=== PATIENT | male | born 1985 | race Caucasian/White ===

== ENCOUNTER 2016-11-13 21:46 | Emergency (ER) | payer BC ==
[2016-11-13 22:01] VITALS: BP 129/83; PULSE 93; TEMP 98.1; BMI 28.8
--- NOTE | 2016-11-13 22:05 | PDOC ---
History of Present Illness - General Chief Complaint: Shortness of Breath Stated Complaint: SOB Time Seen by Provider: 11/13/16 21:49 History Source: Patient Exam Limitations: No Limitations - History of Present Illness Initial Comments: 11/13/16 22:24 This is a 30-year-old male who smokes approximately one half a pack a day who comes in with his girlfriend for evaluation of right-sided chest pain shortness of breath. Chest pain is worse with a deep breath and worse with palpation. Patient denies any history of similar pain in the past. Patient denies any history of hypertension, high cholesterol diabetes. Patient denies any recent travel. Patient denies any fevers, chills, cough, congestion, nausea, diaphoresis, radiation. Patient describes the pain as a sharp pain. Patient is otherwise healthy and takes no other medication. Patient denies any illegal drug use. PAST MEDICAL HISTORY: no significant history PAST SURGICAL HISTORY: no significant history FAMILY HISTORY: no pertinant history SOCIAL HISTORY: Pt lives with family and is employed. MEDICATIONS: reviewed ALLERGIES: As per nursing notes Review of Systems General: No fevers or chills, no weakness, no weight loss HEENT: No change in vision. No sore throat,. No ear pain CardioVascular: + chest pain, + shortness of breath Respiratory:No cough, or wheezing. Gastrointestinal: no nausea, vomitting, diarrhea or constipation, No rectal bleeding Genitourinary: No dysuria, hematuria, or frequency Musculoskeletal: No joint or muscle pain or swelling Neurologic: No headache, vertigo, dizziness or loss of consciousness Psychiatric: nor depression Skin: No rashes or easy bruising Endocrine: no increased thirst or abnormal weight change Allergic: no skin or latex allergy All other systems reviewed and normal Exam: General: Well-nourished well-developed individual, no acute distress HEENT: Throat: Normal, tonsils normal, there is some moderate erythema of the posterior oropharynx there is no exudate Neck: Supple, no meningeal signs, no lymphadenopathy Eyes::Pupils equal reactive and round, extraocular motion intact Chest: There is some mild tenderness on palpation over the right lower chest area. Cardiac: S1-S2 normal, regular rate and rhythm, no murmurs rubs or gallops Respiratory: Lungs clear to auscultation bilateral Abdomen: Soft, nondistended, normal bowel sounds, nontender to palpation diffusely Extremities: Warm, dry, no cyanosis, clubbing, or edema Skin: No rashes Neuro: Alert and oriented x3, nonfocal exam, grossly intact, normal gait Psych: Normal mood and affect EKG shows normal sinus rhythm at a rate of 85, normal intervals no acute ST-T wave changes normal EKG. 11/13/16 23:12 Chest x-ray no acute pathology Assessment and plan: This is a 30-year-old male who comes in complaining of pleuritic type chest pain and some shortness of breath. Patient had a workup including labs and chest x-ray and EKG all of which were completely normal. Patient was reassured that there is no serious cause for his symptoms most likely secondary to a mild viral infection. However patient was also told that he should stop smoking. Past History - Past Medical History Allergies/Adverse Reactions: Allergies Allergy/AdvReac Type Severity Reaction Status Date / Time No Known Allergies Allergy Unverified 11/13/16 21:54 Home Medications: Ambulatory Orders NK [No Known Home Medication] 11/13/16 Other medical history: DENIES - Surgical History Appendectomy: Yes - Psycho/Social/Smoking Cessation Hx Anxiety: No Suicidal Ideation: No Smoking History: Current every day smoker Number of Cigarettes Smoked Daily: 10 Information on smoking cessation initiated: Yes 'Breaking Loose' booklet given: 11/13/16 *Physical Exam - Vital Signs Last Vital Signs Temp Pulse Resp BP Pulse Ox 98.1 F 93 H 18 129/83 97 11/13/16 21:55 11/13/16 21:55 11/13/16 21:55 11/13/16 21:55 11/13/16 21:55 ED Treatment Course - LABORATORY CBC & Chemistry Diagram: 11/13/16 22:22 11/13/16 22:22 *DC/Admit/Observation/Transfer Diagnosis at time of Disposition: Pleurodynia - Discharge Dispostion Disposition: HOME Condition at time of disposition: Stable Admit: No - Patient Instructions Additional Instructions: For the pain you can take ibuprofen 3 tablets 3 times a day with food don't take on an empty stomach. Stop smoking/ Return to the emergency department immediately with ANY new, persistent or worsening symptoms. Continue any medications as previously prescribed by your physician. You should follow up with your primary doctor as soon as possible regarding today's emergency department visit. . Please make sure your doctor reviews the results of your emergency evaluation. Thank you for coming to the Emergency Department today for your care. It was a pleasure to see you today. Please note that your evaluation is INCOMPLETE until you follow-up with your doctor.
[2016-11-13 22:35] LABS: MEAN PLT VOLUME 8.2 fl (7.5-11.1)
[2016-11-13 22:43] LABS: BASOPHIL 1.1 % (0-2.0); MCH 31.5 pg (25.7-33.7); MCHC 34.6 g/dl (32.0-35.9); MEAN CELL VOLUME 91.2 fl (80-96); NEUTROPHILS 50.2 % (42.8-82.8); PLATELET COUNT 178 K/MM3 (134-434); RDW 11.6 % (11.9-15.9); WHITE BLOOD COUNT 7.9 K/mm3 (4.0-10.8)
[2016-11-13 22:51] LABS: CPK(DFH) 93 IU/L (38-174)
[2016-11-13 22:52] LABS: ALBUMIN 4.8 g/dl (3.5-5.0); ALK PHOS 44 U/L (32-92); ANION GAP 8 (8-16); BILIRUBIN,TOTAL 0.4 mg/dl (0.2-1.0); CALCIUM 9.3 mg/dl (8.4-10.2); CO2 24 mmol/L (22-28); CREATININE 0.9 mg/dl (0.6-1.3); GLUCOSE,RANDOM 87 mg/dl (74-106); SGOT/AST 21 U/L (10-42); SGPT/ALT 26 U/L (10-40); TOT PROT 7.2 g/dl (6.4-8.3)
[2016-11-13 22:56] LABS: TROPONIN I (DFP) < 0.03 ng/ml (0.03-0.50)
--- NOTE | 2016-11-14 15:11 | EKG ---
Test Reason : Blood Pressure : / mmHG Vent. Rate : 085 BPM Atrial Rate : 086 BPM P-R Int : 150 ms QRS Dur : 112 ms QT Int : 366 ms P-R-T Axes : 076 078 061 degrees QTc Int : 435 ms NORMAL SINUS RHYTHM NORMAL ECG WHEN COMPARED WITH ECG OF 04-NOV-2006 01:07, NO SIGNIFICANT CHANGE WAS FOUND Confirmed by BELLA TO MD ([id number]) on 11/14/2016 3:11:29 PM Referred By: MD SOTELO Confirmed By:BELLA TO MD
== END 2016-11-13 23:19 | disposition home or self-care (01) ==
LOC: FER 21:46
DX: R07.81 Pleurodynia (principal); F17.210 Nicotine dependence, cigarettes, uncomplicated
CPT/HCPCS: 36415; 71020-TC; 80053; 82550; 84484; 85025; 93005; 99283-25

== ENCOUNTER 2020-01-28 15:08 | Observation (INO) | payer BC ==
--- OUTSIDE RECORDS SUMMARY | 2020-01-28 15:31 | XMS ---
:1985 Author Organization [facility] Care Team Providers Name Role Phone Rich Prince MD Unavailable Unavailable Re-disclosure Warning The records that you are about to access may contain information from federally- assisted alcohol or drug abuse programs. If such information is present, then the following federally mandated warning applies: This information has been disclosed to you from records protected by federal confidentiality rules (42 CFR part 2). The federal rules prohibit you from making any further disclosure of this information unless further disclosure is expressly permitted by the written consent of the person to whom it pertains or as otherwise permitted by 42 CFR part 2. A general authorization for the release of medical or other information is NOT sufficient for this purpose. The Federal rules restrict any use of the information to criminally investigate or prosecute any alcohol or drug abuse patient.The records that you are about to access may contain highly sensitive health information, the redisclosure of which is protected by Article 27-F of the [facility] Public Health law. If you continue you may haveaccess to information: Regarding HIV / AIDS; Provided by facilities licensed or operated by the [facility] Office of Mental Health; or Provided by the [facility] Office for People With Developmental Disabilities. If such information is present, then the following [facility] mandated warning applies: This information has been disclosed to you from confidential records which are protected by state law. State law prohibits you from making any further disclosure of this information without the specific written consent of the person to whom it pertains, or as otherwise permitted by law. Any unauthorized further disclosure in violation of state law may result in a fine or long-term sentence or both. A general authorization for the release of medical or other information is NOT sufficient authorization for further disclosure. Allergies and Adverse Reactions Type Description Substance Reaction Status Data Source(s ) Drug allergy No Known Allergies No Known Allergies UNKNOWN [facility] Encounters Encounter Providers Location Date Indications Data Source(s ) Outpatient Attender: Rich 12/03/2018 BLOOD IN STOOL Cherie Prince MD 11:00:00 AM Hospital EDT - 12/03/2018 10:32:00 AM EDT BLOOD IN STOOL Patient discharged. Medications Medication Brand Start Product Dose Route Administrative Pharmacy [facility] Indications Reaction Description Data Name Date Form Instructions Instructions Source(s) No known complet [place] [facility] . Hospital Insurance Providers Payer name Policy type Policy ID Covered Covered democrat's Policy P oleg / Coverage democrat ID relationship to [place] Inf ormation type [place] [employer] PPO [id number] SP [id number] BLUE CROSS [id number] PT [id number] PPO [facility] [id number] PT [id number] Problems, Conditions, and Diagnoses Code Display Name Description Problem Type Effective Dates Data Source(s) Z87.891 Personal history of Z87.891 Diagnosis 12/03/2018 [place] nicotine dependence 09:32:00 AM EDT Hospital K64.8 Other hemorrhoids K64.8 Diagnosis 12/03/2018 [place] 09:32:00 AM EDT Hospital K63.5 Polyp of colon K63.5 Diagnosis 12/03/2018 [place] 09:32:00 AM EDT Hospital Social History Code Duration Value Status Description Data Source(s ) Smoking Unknown if ever completed Unknown if ever [facility] smoked smoked Hospital
--- NOTE | 2020-01-28 15:47 | PDOC ---
History of Present Illness - General Chief Complaint: Chest Pain Stated Complaint: PAPITATIONS Time Seen by Provider: 01/28/20 15:27 History Source: Patient Exam Limitations: Clinical Condition - History of Present Illness Initial Comments: 01/28/20 15:47 Patient with no significant past medical history present with complaint of sudden onset of palpitations upon waking up this morning. Patient reported having getting last night and had a lot of alcohol to drink yesterday. Patient reported 5 days with history of cardiomyopathy 48 years old. Denies shortness of breath, numbness or tingling sensation, headache, blurry vision, nausea, vomiting, fever, chills, weakness. Denies any other symptoms. Patient has not taken anything for symptoms Is this a multiple visit Asthma Patient?: No Timing/Duration: momentarily Associated Symptoms: reports: other (palpitations). denies: chest pain, cough, fever/chills, headaches, loss of appetite, nausea/vomiting, syncope Beta Ezekiel Given by EMS(Core Measure): No Beta Ezekiel Taken at Home(Core Measure): No Beta Ezekiel Not Indicated at this Time(Core Measure): No Past History - Medical History Allergies/Adverse Reactions: Allergies Allergy/AdvReac Type Severity Reaction Status Date / Time No Known Allergies Allergy Unverified 11/13/16 21:54 Home Medications: Ambulatory Orders NK [No Known Home Medication] 11/13/16 COPD: No - Surgical History Appendectomy: Yes - Psycho-Social/Smoking History Smoking History: Never smoked Number of Cigarettes Smoked Daily: 10 'Breaking Loose' booklet given: 11/13/16 - Substance Abuse Hx (Audit-C & DAST Scrn) How often the patient has a drink containing alcohol: Monthly or less Score: In Men: 4 or > Positive; In Women: 3 or > Positive: 1 Screen Result (Pos requires Nsg. Audit-10AR): Negative Review of Systems - Review of Systems Able to Perform ROS?: Yes Is the patient limited Welsh proficient: No Constitutional: No: Chills, Fever, Malaise HEENTM: No: Symptoms Reported, See HPI, Eye Pain, Blurred Vision, Tearing, Recent change in vision, Double Vision, Cataracts, Ear Pain, Ocular Prothesis, Ear Discharge, Nose Pain, Nose Congestion, Tinnitus, Nose Bleeding, Hearing Loss, Throat Pain, Throat Swelling, Mouth Pain, Dental Problems, Difficulty Swallowing, Mouth Swelling, Other Respiratory: No: Symptoms reported, See HPI, Cough, Orthopnea, Shortness of Breath, SOB with Exertion, SOB at Rest, Stridor, Wheezing, Productive cough, Hemoptysis, Other Cardiac (ROS): Yes: Symptoms Reported, See HPI, Irregular Heart Rate, Palpitations. No: Chest Pain, Edema, Lightheadedness, Syncope, Chest Tightness, Other ABD/GI: No: Symptoms Reported, Nausea, Vomiting : No: Symptoms Reported Musculoskeletal: No: Symptoms Reported Integumentary: No: Symptoms Reported Neurological: No: Symptoms reported, Headache, Dizziness All Other Systems: Reviewed and Negative *Physical Exam - Vital Signs Last Vital Signs Temp Pulse Resp BP Pulse Ox 98.3 F 73 20 125/71 100 01/28/20 15:13 01/28/20 15:13 01/28/20 15:13 01/28/20 15:13 01/28/20 15:13 - Physical Exam 01/28/20 15:43 GENERAL: Well developed, well nourished. Awake and alert. No acute distress. HEENT: Normocephalic, atraumatic. PERRLA, EOMI. No conjunctival pallor. Sclera are non-icteric. Moist mucous membranes. Oropharynx is clear. NECK: Supple. Full ROM. CARDIOVASCULAR: Regular rate with irregular rhythm. rubs, or gallops. Distal pulses are 2+ and symmetric. PULMONARY: No evidence of respiratory distress. Lungs clear to auscultation bilaterally. No wheezing, rales or rhonchi. ABDOMINAL: Soft. Non-tender. Non-distended. No rebound or guarding. No organomegaly. Normoactive bowel sounds. MUSCULOSKELETAL Normal range of motion at all joints. EXTREMITIES: No cyanosis. No clubbing. No edema. No calf tenderness. SKIN: Warm and dry. Normal capillary refill. No rashes. No jaundice. NEUROLOGICAL: Alert, awake, appropriate. Gait is normal without ataxia. PSYCHIATRIC: Cooperative. Good eye contact. Appropriate mood General Appearance: Yes: Nourished, Appropriately Dressed. No: Apparent Distress ED Treatment Course - RADIOLOGY Radiology Studies Ordered: Category Date Time Status CHEST PA & LAT [RAD] Stat Radiology 01/28/20 15:37 Ordered Medical Decision Making - Medical Decision Making 01/28/20 15:48 Patient with no significant past medical history present with complaint of sudden onset of palpitations upon waking up this morning. Patient reported having getting last night and had a lot of alcohol to drink yesterday. Patient reported 5 days with history of cardiomyopathy 48 years old. Denies shortness of breath, numbness or tingling sensation, headache, blurry vision, nausea, vomiting, fever, chills, weakness. Denies any other symptoms. Patient has not taken anything for symptoms Exam significant for irregular heart rate and rhythm with patient in no acute distress. Normal lung exam. Patient afebrile. Symptoms likely irregular be from alcohol versus cardiogenic symptoms. EKG, CBC, cardiac profile lab and checks x-ray ordered. Patient will be placed on residential monitor pending EKG and lab results 01/28/20 15:56 EKG shows rapid atrial fibrillation with some PVCs. Patient is symptomatic at this time and placed on residential monitor. Discussed case with attending Dr. Gr who will be following up with patient with resident Mook and pt moved to bed with residential monitor Discharge - Discharge Information Problems reviewed: Yes Clinical Impression/Diagnosis: New onset a-fib Condition: Stable - Follow up/Referral - Patient Discharge Instructions - Post Discharge Activity
[2020-01-28] MEDS ORDERED: dilTIAZem HCL 50 MG/10 ML - 10 ML VIAL IVPUSH ONE ×2 (15:53→17:09)
[2020-01-28] MEDS ORDERED: LACTATED RINGERS SOLUTION 1000 ML INFUS.BAG IV ONE (15:53)
[2020-01-28] MEDS ORDERED: dilTIAZem HCL 125 MG/25 ML - 25 ML VIAL ONE (15:56)
[2020-01-28] MEDS: SODIUM CHLORIDE 1,000 ML IV STA ×2 (15:57→15:58)
[2020-01-28 16:07] LABS: BASO % 0.3 % (0-2.0); EOS % 0.5 % (0-4.5); HEMATOCRIT 45.4 % (35.4-49); HEMOGLOBIN 15.8 GM/dL (11.7-16.9); LYMPH % 22.3 % (8-40); MCH 32.3 pg (25.7-33.7); MCHC 34.9 g/dl (32.0-35.9); MEAN CELL VOLUME 92.5 fl (80-96); MEAN PLT VOLUME 8.4 fl (7.5-11.1); MONO % 6.5 % (3.8-10.2); NEUT % 70.4 % (42.8-82.8); PLATELET COUNT 186 K/MM3 (134-434); RBC 4.91 M/mm3 (4.00-5.60); WHITE BLOOD COUNT 8.5 K/mm3 (4.0-10.0)
--- NOTE | 2020-01-28 16:26 | PDOC ---
Attending Attestation - Resident Resident Name: MookSae - ED Attending Attestation I have performed the following: I have examined & evaluated the patient, The case was reviewed & discussed with the resident, I agree w/resident's findings & plan, Exceptions are as noted - HPI HPI: 01/28/20 16:18 34YOM who p/w palpitations, SOB, lightheadedness after standing quickly, and jittery feeling after binge drinking for the past 4 days. Got yesterday which he notes is why he was drinking. States he ate [place] food today and had epigastric burning after that time but this has since resolved. Notes one prior episode of similar symptoms but he never sought medical treatment because it resolved. Denies recent f/c/n/v/d/c, abdominal pain, or any current chest pain. - Physicial Exam PE: 01/28/20 16:58 GENERAL: well-appearing, A/Ox4, no distress, answers questions appropriately HEENT: PERRLA, EOMI, moist mucous membranes NECK/BACK: no midline ttp, no spinal step-off or deformity, no hematoma, full ROM, neck supple CARDIOVASCULAR: irregularly irregular and tachycardic, no MGR, strong peripheral pulses, capillary refill <2 seconds, extremities wwp, no edema LUNGS/RESPIRATORY: no respiratory distress, CTAB GI/ABDOMEN: symmetric [id number], normoactive BS, soft, no ttp, no midline pulsatile masses : no CVA tenderness MSK/EXTREMITIES: no muscle atrophy, no acute deformity SKIN: warm and dry, no pallor, no jaundice, no rash, no pathologic-appearing bruising, no skin breakdown, no cuts, no lesions NEUROLOGICAL: GCS 15, CN II-XII grossly intact, 5/5 strength proximally and dis tally, no facial droop - Medical Decision Making 01/28/20 16:58 34YOM presents with lightheadedness, SOB, episode of chest burning, and palpitations this afternoon, found in A-fib with RVR. Initial Vital Signs Temp Pulse Resp BP Pulse Ox 98.3 F 73 20 125/71 100 01/28/20 15:13 01/28/20 15:13 01/28/20 15:13 01/28/20 15:13 01/28/20 15:13 Most likely A-fib precipitated by binge drinking, possible withdrawal, ischemia (ACS), structural heart condition less likely anemia PE, metabolic derangement, thyroid condition, anxiety/panic disorder, medication effect, etc. Patient given Cardizem 20 mg IVPush and 30 mg PO chaser. Initially HR improved to about 100 ventricular rate. RAD/CHEST PA LAT Chest: Chest pain 2 views of the chest reveal some degenerative changes with wedging, clear well aerated lungs, sharp angles, normal heart, normal and slight hilar prominence. An acute process is not seen. Since 11/13/2016 there is no change of an adverse nature. Impression: No acute chest pathology. 01/28/20 17:02 HR back up to 120-150s. 01/28/20 17:09 Re-checked BP and it is 114/84. Patient re-dosed with 25 mg Cardizem IVPush. 01/28/20 17:20 Dr. Delvalle spoke with Dr. Abreu, consult order placed, patient will go to Tele Inpatient Provider Orders Category Date Time Status Admission Certification ONCEPCS Admission 01/28/20 18:22 Completed Admit for Inpatient Services ONCE Admission 01/28/20 18:22 Completed Decision to Admit to Hospital Routine Admission 01/28/20 17:20 Active ECHO W/DOPPLER,M MODE & COLOR* [CARD] Stat Cardiology 01/29/20 18:42 Completed EKG [ELECTROCARDIOGRAM] [CARD] Stat Cardiology 01/28/20 15:22 Completed Cardiac Monitoring Continuous Care 01/28/20 15:37 Completed ED - May transport w/o monitor As directed Care 01/28/20 20:11 Completed EKG needed NOW Care 01/28/20 15:22 Completed Isolation Precautions As directed Care 01/28/20 16:26 Completed NPO (in ED only) NOW Care 01/28/20 15:37 Completed Physician Consultation Physician 1 Cons 01/28/20 17:19 Ordered Cardiac [Cholesterol/Na Controlled] [DT] Diet 01/29/20 Breakfast Completed BMP [BASIC METABOLIC PANEL] Routine Lab 01/29/20 05:45 Completed CARDIAC PROFILE ([facility]) Stat Lab 01/28/20 15:52 Completed CBC WITH DIFFERENTIAL Stat Lab 01/28/20 15:52 Completed CK INDEX Stat Lab 01/28/20 15:52 Completed CK MB Stat Lab 01/28/20 15:52 Completed COMP METABOLIC PANEL Stat Lab 01/28/20 15:52 Completed COVID-19 Stat Lab 01/28/20 16:26 Completed DRUG SCREEN,UR ER- [facility] Stat Lab 01/28/20 19:35 Completed Hgb A1C [HEMOGLOBIN A1C] Stat Lab 01/29/20 05:45 Completed MAGNESIUM Stat Lab 01/28/20 15:52 Completed Mg [MAGNESIUM] Routine Lab 01/29/20 05:45 Completed THYROID STIMULATING HORMONE Stat Lab 01/28/20 15:52 Completed UA [UA ([facility]) ONLY] Stat Lab 01/28/20 19:35 Completed Apixaban [Eliquis -] Medication 01/28/20 22:00 Discontinued 5 mg PO BID Diltiazem HCl Medication 01/28/20 16:18 Discontinued 30 mg PO ONCE ONE Diltiazem Injection [Cardizem Injection -] Medication 01/28/20 15:56 Discontinued 125 mg .ROUTE .STK-MED ONE Diltiazem Injection [Cardizem Injection -] Medication 01/28/20 15:53 Discontinued 20 mg IVPUSH ONCE ONE Diltiazem Injection [Cardizem Injection -] Medication 01/28/20 17:09 Discontinued 25 mg IVPUSH ONCE ONE Diltiazem [Cardizem -] Medication 01/28/20 16:28 Discontinued 30 mg .ROUTE .STK-MED ONE Lactated Ringers Solution Medication 01/28/20 15:53 Discontinued 1,000 ml IV ONCE ONE Metoprolol Succinate [Toprol Xl -] Medication 01/29/20 10:00 Discontinued 25 mg PO DAILY Metoprolol Tartrate Injection [Lopressor Injection -] Medication 01/28/20 18:27 Discontinued 5 mg IVPUSH Q4H PRN Sodium Chloride [Normal Saline -] 1,000 ml Medication 01/28/20 15:37 Discontinued IV ASDIR URINE CULTURE Stat Micro 01/28/20 19:35 Completed IV Insert NOW Phy Order 01/28/20 15:37 Completed CHEST PA & LAT [RAD] Stat Radiology 01/28/20 15:37 Completed Reminder: new phy cons See Order Reminders 01/28/20 17:19 Completed Lab Results WBC 8.5 K/mm3 (4.0-10.0) 01/28/20 15:52 RBC 4.91 M/mm3 (4.00-5.60) 01/28/20 15:52 Hgb 15.8 GM/dL (11.7-16.9) 01/28/20 15:52 Hct 45.4 % (35.4-49) 01/28/20 15:52 MCV 92.5 fl (80-96) 01/28/20 15:52 MCH 32.3 pg (25.7-33.7) 01/28/20 15:52 MCHC 34.9 g/dl (32.0-35.9) 01/28/20 15:52 RDW 13.0 % (11.9-15.9) 01/28/20 15:52 Plt Count 186 K/MM3 (134-434) 01/28/20 15:52 MPV 8.4 fl (7.5-11.1) 01/28/20 15:52 Absolute Neuts (auto) 6.0 K/mm3 (1.5-8.0) 01/28/20 15:52 Neutrophils % 70.4 % (42.8-82.8) 01/28/20 15:52 Lymphocytes % 22.3 % (8-40) 01/28/20 15:52 Monocytes % 6.5 % (3.8-10.2) 01/28/20 15:52 Eosinophils % 0.5 % (0-4.5) 01/28/20 15:52 Basophils % 0.3 % (0-2.0) 01/28/20 15:52 Nucleated RBC % 0 % (0-0) 01/28/20 15:52 Sodium 140 mmol/L (136-145) 01/29/20 05:45 Potassium 4.2 mmol/L (3.5-5.1) 01/29/20 05:45 Chloride 104 mmol/L (98-107) 01/29/20 05:45 Carbon Dioxide 30 mmol/L (21-32) 01/29/20 05:45 Anion Gap 6 MMOL/L (8-16) L 01/29/20 05:45 BUN 16.3 mg/dL (7-18) 01/29/20 05:45 Creatinine 0.9 mg/dL (0.55-1.3) 01/29/20 05:45 Est GFR (CKD-EPI)AfAm 126.90 01/29/20 05:45 Est GFR (CKD-EPI)NonAf 109.49 01/29/20 05:45 Random Glucose 87 mg/dL (74-106) 01/29/20 05:45 Hemoglobin A1c % 4.7 % (4.2-6.3) 01/29/20 05:45 Calcium 8.9 mg/dL (8.5-10.1) 01/29/20 05:45 Magnesium 2.1 mg/dL (1.8-2.4) 01/29/20 05:45 Total Bilirubin 0.7 mg/dL (0.2-1) 01/28/20 15:52 AST 30 U/L (15-37) 01/28/20 15:52 ALT 45 U/L (13-61) 01/28/20 15:52 Alkaline Phosphatase 55 U/L (45-117) 01/28/20 15:52 Creatine Kinase 204 U/L (26-308) 01/28/20 15:52 Creatine Kinase Index 1.5 % (0.0-5.0) 01/28/20 15:52 CK-MB (CK-2) 3.1 ng/mL (0.5-3.6) 01/28/20 15:52 Troponin I < 0.02 ng/ml (0.00-0.05) 01/28/20 15:52 Total Protein 8.2 g/dl (6.4-8.2) 01/28/20 15:52 Albumin 4.6 g/dl (3.4-5.0) 01/28/20 15:52 TSH 1.31 uIU/ml (0.358-3.74) 01/28/20 15:52 Urine Color Yellow 01/28/20 19:35 Urine Appearance Clear 01/28/20 19:35 Urine pH 7.0 (5.0-8.0) 01/28/20 19:35 Ur Specific [place] 1.015 (1.010-1.035) 01/28/20 19:35 Urine Protein Negative (NEGATIVE) 01/28/20 19:35 Urine Glucose (UA) Negative (NEGATIVE) 01/28/20 19:35 Urine Ketones 1+ (NEGATIVE) H 01/28/20 19:35 Urine Blood Negative (NEGATIVE) 01/28/20 19:35 Urine Nitrite Negative (NEGATIVE) 01/28/20 19:35 Urine Bilirubin Negative (NEGATIVE) 01/28/20 19:35 Urine Urobilinogen 1.0 mg/dL (0.2-1.0) 01/28/20 19:35 Ur Leukocyte Esterase Negative (NEGATIVE) 01/28/20 19:35 Opiates Screen Negative ng/ml (IKTOYQ=505) 01/28/20 19:35 Methadone Screen Negative ng/ml (HBMQVP=330) 01/28/20 19:35 Barbiturate Screen Negative ng/ml (VRPFIR=219) 01/28/20 19:35 Phencyclidine Screen Negative ng/ml (CUTOFF=25) 01/28/20 19:35 Ur Amphetamines Screen Negative ng/ml (NCDANQ=478) 01/28/20 19:35 MDMA (Ecstasy) Screen Negative ng/ml (EJLTIM=856) 01/28/20 19:35 Benzodiazepines Screen Negative ng/ml (TNDPJV=730) 01/28/20 19:35 Cocaine Screen Negative ng/ml (JNHHFF=047) 01/28/20 19:35 U Marijuana (THC) Screen Negative ng/ml (CUTOFF=50) 01/28/20 19:35 COVID-19 (SKYE) Not detected (Not Detected) 01/28/20 16:26 Discharge - Discharge Information Problems reviewed: Yes Clinical Impression/Diagnosis: New onset a-fib Condition: Guarded - Admission Yes - Follow up/Referral - Patient Discharge Instructions - Post Discharge Activity
[2020-01-28] MEDS ORDERED: dilTIAZem HCL 30 MG TABLET ONE (16:28)
[2020-01-28 16:38] LABS: ALBUMIN 4.6 g/dl (3.4-5.0); ANION GAP 9 MMOL/L (8-16); CALCIUM 9.1 mg/dL (8.5-10.1); CHLORIDE 104 mmol/L (98-107); CO2 26 mmol/L (21-32); GLUCOSE,RANDOM 165 mg/dL (74-106); MAGNESIUM 2.2 mg/dL (1.8-2.4); POTASSIUM 3.9 mmol/L (3.5-5.1); SGPT/ALT 45 U/L (13-61); SODIUM 139 mmol/L (136-145)
[2020-01-28 16:42] LABS: ALK PHOS 55 U/L (45-117); BILIRUBIN,TOTAL 0.7 mg/dL (0.2-1); CREATININE 0.9 mg/dL (0.55-1.3); SGOT/AST 30 U/L (15-37); TOT PROT 8.2 g/dl (6.4-8.2)
--- NOTE | 2020-01-28 17:24 | PDOC ---
History of Present Illness - General Chief Complaint: Chest Pain Stated Complaint: PAPITATIONS Time Seen by Provider: 01/28/20 15:27 Past History - Medical History Allergies/Adverse Reactions: Allergies Allergy/AdvReac Type Severity Reaction Status Date / Time No Known Allergies Allergy Unverified 11/13/16 21:54 Home Medications: Ambulatory Orders NK [No Known Home Medication] 11/13/16 COPD: No - Surgical History Appendectomy: Yes - Psycho-Social/Smoking History Smoking History: Never smoked Number of Cigarettes Smoked Daily: 10 'Breaking Loose' booklet given: 11/13/16 - Substance Abuse Hx (Audit-C & DAST Scrn) How often the patient has a drink containing alcohol: Monthly or less Score: In Men: 4 or > Positive; In Women: 3 or > Positive: 1 Screen Result (Pos requires Nsg. Audit-10AR): Negative Review of Systems - Review of Systems Is the patient limited Mohawk proficient: No *Physical Exam - Vital Signs Last Vital Signs Temp Pulse Resp BP Pulse Ox 98.3 F 73 20 125/71 100 01/28/20 15:13 01/28/20 15:13 01/28/20 15:13 01/28/20 15:13 01/28/20 16:56 ED Treatment Course - LABORATORY CBC & Chemistry Diagram: 01/28/20 15:52 01/28/20 15:52 - ADDITIONAL ORDERS Additional order review: Laboratory Results 01/28/20 15:52 Sodium 139 Potassium 3.9 Chloride 104 Carbon Dioxide 26 Anion Gap 9 BUN 15.0 Creatinine 0.9 Est GFR (CKD-EPI)AfAm 126.90 Est GFR (CKD-EPI)NonAf 109.49 Random Glucose 165 H Calcium 9.1 Magnesium 2.2 Total Bilirubin 0.7 AST 30 ALT 45 Alkaline Phosphatase 55 Creatine Kinase 204 Creatine Kinase Index 1.5 CK-MB (CK-2) 3.1 Troponin I < 0.02 Total Protein 8.2 Albumin 4.6 TSH 1.31 01/28/20 15:52 RBC 4.91 MCV 92.5 MCHC 34.9 RDW 13.0 MPV 8.4 Neutrophils % 70.4 Lymphocytes % 22.3 Monocytes % 6.5 Eosinophils % 0.5 Basophils % 0.3 - Medications Given in the ED: ED Medications Discontinued Medications Generic Name Dose Route Start Last Admin Trade Name Freq PRN Reason Stop Dose Admin Diltiazem HCl 20 mg 01/28/20 15:53 01/28/20 15:58 Cardizem Injection - IVPUSH 01/28/20 15:54 20 mg ONCE ONE Administration Diltiazem HCl 30 mg 01/28/20 16:18 01/28/20 16:38 Diltiazem Hcl PO 01/28/20 16:19 30 mg ONCE ONE Administration Diltiazem HCl 25 mg 01/28/20 17:09 01/28/20 17:12 Cardizem Injection - IVPUSH 01/28/20 17:10 25 mg ONCE ONE Administration Sodium Chloride 1,000 mls @ 1,000 mls/hr 01/28/20 15:37 01/28/20 15:58 Normal Saline - IV 01/28/20 16:36 Not Given ASDIR STA Lactated Ringer's 1,000 ml 01/28/20 15:53 01/28/20 15:58 Lactated Ringers Solution IV 01/28/20 15:54 1,000 ml ONCE ONE Administration Medical Decision Making - Medical Decision Making 34M w/no PMH p/w palpitations, lightheadedness, HR to 170s on arrival, EKG notable for afib, representing afib w.RVR. No prior cardiac history, BP remains stable to 120s/90s. Plan: CBC CMP TSH EKG CXR Troponin Cardiology consult Cardizem 20mg IV, followed by 30mg po chaser Dispo: Admit telemetry vs ICU pending requirement for drips to maintain HR <115 01/28/20 17:[address] Alvarado (Cardiology). Plan for 50mg po metoprolol. 5mg metoprolol can be given prn for target HR <115. Eliquis for anticoagulation. Discharge - Discharge Information Clinical Impression/Diagnosis: New onset a-fib Condition: Stable - Follow up/Referral - Patient Discharge Instructions - Post Discharge Activity
[2020-01-28] MEDS ORDERED: METOPROLOL TARTRATE 5 MG/5 ML VIAL IVPUSH PRN (18:27)
--- NOTE | 2020-01-28 18:39 | HP ---
CHIEF COMPLAINT: Palpitations PCP: Dr. Betito Espinal HISTORY OF PRESENT ILLNESS: 34yo M with no PMHx who presents one day after his wedding due to rapid palpitations. Patient has experienced these symptoms before (around 2 mo prior), however at the time he went to bed and the episode resolved. Today he came in at the suggestion of his because he started to develop an uneasiness and slight lightheadedness. Patient takes no medications and has never had any cardiac or pulmonary history. He admits to drinking alcohol in celebration of his wedding, but otherwise had not consumed any illicit substances or an extreme amount of caffeinated beverages. In Ed patient was noted to have HR of 180bpm and was given Cardizem IVP twice with good effects, however not long-lasting. He was given Cardizem 30mg PO by ER providers and upon my examination his HR is around 100-120bpm. Patient's BP had been stable throughout his course and he feels markedly improved. PAST MEDICAL HISTORY: None prior PAST SURGICAL HISTORY: None Social History: Smoking: Denies Alcohol: Socially/Special occasions Drugs: None Family History: Father - CAD with multiple stents; no other history he is aware of Allergies No Known Allergies Allergy (Unverified 11/13/16 21:54) HOME MEDICATIONS: Home Medications Medication Instructions Recorded NK [No Known Home Medication] 11/13/16 REVIEW OF SYSTEMS As per [facility] PHYSICAL EXAMINATION Vital Signs - 24 hr 01/28/20 01/28/20 15:13 16:56 Temperature 98.3 F Pulse Rate 73 Respiratory 20 Rate Blood Pressure 125/71 O2 Sat by Pulse 100 100 Oximetry (%) GENERAL: Awake, alert, and fully oriented, in no acute distress. HEENT: NC/At, EOMi, VEE, sclera anicteric, MMM NECK: No JVD, no carotid bruits, no thyromegaly appreciated LUNGS: CTA bilaterally. No wheezes, and no crackles. No accessory muscle use. HEART: Tachycardic with regular rhythm, normal S1 and S2 without murmurs ABDOMEN: Soft, NT/ND, normoactive bowel sounds, no guarding EXTREMITIES: 2+ pulses, warm, well-perfused. No calf tenderness. No peripheral edema. PSYCHIATRIC: Cooperative. Good eye contact. Appropriate mood and affect. SKIN: Warm, dry, no rashes or lesions noted Laboratory Results - last 24 hr 01/28/20 01/28/20 15:52 15:52 WBC 8.5 RBC 4.91 Hgb 15.8 Hct 45.4 MCV 92.5 MCH 32.3 MCHC 34.9 RDW 13.0 Plt Count 186 MPV 8.4 Absolute Neuts (auto) 6.0 Neutrophils % 70.4 Lymphocytes % 22.3 Monocytes % 6.5 Eosinophils % 0.5 Basophils % 0.3 Nucleated RBC % 0 Sodium 139 Potassium 3.9 Chloride 104 Carbon Dioxide 26 Anion Gap 9 BUN 15.0 Creatinine 0.9 Est GFR (CKD-EPI)AfAm 126.90 Est GFR (CKD-EPI)NonAf 109.49 Random Glucose 165 H Calcium 9.1 Magnesium 2.2 Total Bilirubin 0.7 AST 30 ALT 45 Alkaline Phosphatase 55 Creatine Kinase 204 Creatine Kinase Index 1.5 CK-MB (CK-2) 3.1 Troponin I < 0.02 Total Protein 8.2 Albumin 4.6 TSH 1.31 ASSESSMENT/PLAN: New Onset Atrial Fibrillation Hyperglycemia without diagnosis of diabetes --TSH WNL currently --No viral syndromes pre-empting --Likely 2/2 alcohol use and possibility of paroxysmal atrial fibrillation due to episodes past --Cardiac monitoring; maintain HR <120bpm --Echocardiogram --Discussed with cardiology on case ([facility]) and appreciated recs --Eliquis 5mg BID considering rapid state and potential for cardioversion if nonconverting --Toprol XL 50mg daily with PRN Lopressor 5mg q4h IVP pending hemodynamics (hold parameters placed in orders) Dispo: Admit telemetry Raymundo Trevino DO - IM Family Medical History Family History: As Documented Visit type - Emergency Visit Emergency Visit: Yes Care time: The patient presented to the Emergency Department on the above date and was hospitalized for further evaluation of their emergent condition. - New Patient This patient is new to me today: Yes Date on this admission: 01/28/20 - Critical Care Critical Care patient: No
--- OUTSIDE RECORDS SUMMARY | 2020-01-28 19:48 | XMS ---
:1985 Author Organization [facility] Care Team Providers Name Role Phone [...] is protected by Article 27-F of the [facility] Public Health law. If you continue you may haveaccess to information: Regarding HIV / AIDS; Provided by facilities licensed or operated by the [facility] Office of Mental Health; or Provided by the [facility] Office for People With Developmental Disabilities. If such information is present, then the following [facility] mandated warning applies: This information has been [...] law may result in a fine or intermediate sentence or both. A general authorization for the release of medical or other information is NOT sufficient authorization for further disclosure. Allergies and Adverse Reactions Type Description Substance Reaction Status Data Source(s ) Drug allergy No Known Allergies No Known Allergies UNKNOWN [facility] Encounters Encounter Providers Location Date Indications Data Source(s ) Outpatient Attender: Rich 12/03/2018 BLOOD IN STOOL Cherie Prince MD 11:00:00 AM Hospital EDT - 12/03/2018 10:32:00 AM EDT BLOOD IN STOOL Patient discharged. Medications Medication Brand Start Product Dose Route Administrative Pharmacy [facility] Indications Reaction Description Data Name Date Form Instructions Instructions Source(s) No known complet [place] [facility] Insurance Providers Payer name Policy type Policy ID Covered Covered constitution party's Policy P oleg / Coverage constitution party ID relationship to [place] Inf ormation type [place] BC PPO [id number] SP [id number] BLUE CROSS [id number] PT [id number] PPO [facility] [id number] PT [id number] Problems, Conditions, and Diagnoses Code Display Name Description Problem Type Effective Dates Data Source(s) Z87.891 Personal history of Z87.891 Diagnosis 12/03/2018 [place] nicotine dependence 09:32:00 AM EDT Hospital K64.8 Other hemorrhoids K64.8 Diagnosis 12/03/2018 [facility] 09:32:00 AM EDT Hospital K63.5 Polyp of colon K63.5 Diagnosis 12/03/2018 [place] 09:32:00 AM EDT Hospital Social History Code Duration Value Status Description Data Source(s ) Smoking Unknown if ever completed Unknown if ever [facility] smoked smoked Hospital
[2020-01-28 20:00] LABS: URINE APPEARANCE CLEAR; URINE BILIRUBIN NEGATIVE (NEGATIVE); URINE COLOR YELLOW; URINE GLUCOSE (UA) NEGATIVE (NEGATIVE); URINE KETONE 1+ (NEGATIVE); URINE LEUK ESTERASE NEGATIVE (NEGATIVE); URINE NITRITE NEGATIVE (NEGATIVE); URINE PROTEIN NEGATIVE (NEGATIVE)
[2020-01-28 20:11] LABS: COCAINE, UR NEGATIVE ng/ml (CUTOFF=300); METHADONE, UR NEGATIVE ng/ml (CUTOFF=300); OPIATES, URI NEGATIVE ng/ml (CUTOFF=300); PHENCYCLIDINE,URINE NEGATIVE ng/ml (CUTOFF=25); URINE AMPHETAMINES NEGATIVE ng/ml (CUTOFF=500); URINE BARBITURATES NEGATIVE ng/ml (CUTOFF=200); URINE BENZODIAZEPINES NEGATIVE ng/ml (CUTOFF=200)
[2020-01-28] MEDS: APIXABAN 5 MG TABLET PO SCH (21:36)
[2020-01-29 01:11] VITALS: BMI 31.9
[2020-01-29 07:19] LABS: BLOOD UREA NITROGEN 16.3 mg/dL (7-18); CALCIUM 8.9 mg/dL (8.5-10.1); CREATININE 0.9 mg/dL (0.55-1.3); MAGNESIUM 2.1 mg/dL (1.8-2.4); POTASSIUM 4.2 mmol/L (3.5-5.1)
[2020-01-29] MEDS: APIXABAN 5 MG TABLET PO SCH (09:11)
[2020-01-29] MEDS ORDERED: metoPROLOL SUCCINATE 25 MG TAB.SR.24H (FP) PO SCH (10:00)
--- NOTE | 2020-01-29 10:50 | CON.CARD ---
Consult Consult Specialty:: Cardiology Referred by:: Uriel Reason for Consultation:: PAF - History of Present Illness Chief Complaint: palpitations History of Present Illness: He ia a 34 year old man without past medical history who presented to the ER 01/28/20 with palpitations rapid heart beat, after his wedding (drank alcohol no drugs) with lightheadedness. No chest pain, orthopnea, pnd edema or syncope. He had a similar episode 2 months ago, resolved spontaneously. In the ER he was in afib @ 180, given dilt IV, then PO, then toprol xl and eliquis. Spontaneously converted to NSR. Baseline exercise tolerance is excellent. - History Source History Provided By: Patient, Medical Record - Smoking History Smoking history: Former smoker Have you smoked in the past 12 months: No Aproximately how many cigarettes per day: 20 If you are a former smoker, when did you quit?: 3 years ago Home Medications - Allergies Allergies/Adverse Reactions: Allergies Allergy/AdvReac Type Severity Reaction Status Date / Time No Known Allergies Allergy Unverified 11/13/16 21:54 - Home Medications Home Medications: Ambulatory Orders NK [No Known Home Medication] 11/13/16 Review of Systems - Review of Systems Constitutional: reports: No Symptoms, Weakness HENT: reports: No Symptoms Neck: reports: No Symptoms Cardiovascular: reports: Palpitations Respiratory: reports: No Symptoms Gastrointestinal: reports: No Symptoms Genitourinary: reports: No Symptoms Musculoskeletal: reports: No Symptoms Integumentary: reports: No Symptoms - Risk Factors Known Risk Factors: No: Age, Diabetes Mellitus, Family History, Gender, Hypercholesterolemia, Hypertension, Physical Inactivity, Prior OK /Emb Stroke, Race, Smoking, Other Vital Signs: Vital Signs Temperature 98 F 01/29/20 10:00 Pulse Rate 81 01/29/20 10:00 Respiratory Rate 18 01/29/20 10:00 Blood Pressure 124/77 01/29/20 10:00 O2 Sat by Pulse Oximetry (%) 99 01/29/20 10:00 Constitutional: Yes: No Distress, Calm Eyes: Yes: Conjunctiva Clear, EOM Intact HENT: Yes: Atraumatic, Normocephalic Neck: Yes: Supple, Trachea Midline Respiratory: Yes: Regular, CTA Bilaterally Gastrointestinal: Yes: Normal Bowel Sounds, Soft Renal/: Yes: WNL Cardiovascular: Yes: Regular Rate and Rhythm JVD: No Carotid Bruit: No PMI: Non-Displaced Heart Sounds: Yes: S1, S2 Musculoskeletal: Yes: WNL Extremities: Yes: WNL Edema: No Peripheral Pulses WNL: Yes - Other Data Labs, Other Data: CBC, BMP 01/28/20 15:52 01/29/20 05:45 Troponin, BNP 01/28/20 15:52 Troponin I < 0.02 Troponin, BNP 01/28/20 15:52 Troponin I < 0.02 Imaging - Results Chest X-ray: Report Reviewed EKG: Report Reviewed (af rvr) Assessment/Plan He ia a 34 year old man without past medical history who presented to the ER 01/28/20 with palpitations rapid heart beat, after his wedding (drank alcohol no drugs) with lightheadedness. No chest pain, orthopnea, pnd edema or syncope. He had a similar episode 2 months ago, resolved spontaneously. In the ER he was in afib @ 180, given dilt IV, then PO, then toprol xl and eliquis. Spontaneously converted to NSR. Baseline exercise tolerance is excellent. PAF: -CHADS2-VASC is 0. -no need for AC. -echo before dc if possible. -continue low dose metoprolol. -will need outpatient fu with Dr Lunsford for event monitor and possible PVI in the future. [phone] information given to the patient.
--- NOTE | 2020-01-29 12:53 | PN ---
Teaching Attending Note Name of Resident: Saad Hyde ATTENDING PHYSICIAN STATEMENT I saw and evaluated the patient. I reviewed the resident's note and discussed the case with the resident. I agree with the resident's findings and plan as documented. SUBJECTIVE: no fever or chills, no JACKSON, no cp or palpitations or SOB . denies excessive alcohol or caffeine use , no drug use OBJECTIVE: NAd , wake, alert, cooperative CV: RRR, no MRG Lungs: CTAB ext : No edema or erythema , on upper or lower extremities ASSESSMENT AND PLAN: 34 y/o man with no sig PMH who presented with palpitation and was found ot have A fib with RVR 1- new onset A fib . TSH NL . A1c 4.5 CHADSVASC 0 . cont toprol daily f/u with card. - no AC or ASpirin - f/u with card d/w Dr. montes follow echo reprot. dc home today
--- NOTE | 2020-01-29 14:18 | DS ---
Physical Exam: SUBJECTIVE: Patient seen and examined this morning, in no acute distress. Endorses no complaints. Denies any F/C, JACKSON, changes in vision, CP, palpitations, SoB, N/V/D, swelling. + OBJECTIVE: Vital Signs Period Temp Pulse Resp BP Sys/Wallace Pulse Ox Last 24 Hr 97.8 F-98.8 F 73-136 18-20 101-125/63-84 98-100 PHYSICAL EXAM GENERAL: The patient is awake, alert, and fully oriented, in no acute distress. HEAD: Normal with no signs of trauma. EYES: PERRL, extraocular movements intact, sclera anicteric, conjunctiva clear. ENT: Ears normal, nares patent, oropharynx clear without exudates, moist mucous membranes. NECK: Trachea midline, full range of motion, supple. LUNGS: Breath sounds equal, clear to auscultation bilaterally, no wheezes, no crackles, no accessory muscle use. HEART: Regular rate and rhythm, S1, S2 without murmur, rub or gallop. ABDOMEN: Soft, nontender, nondistended, normoactive bowel sounds EXTREMITIES: 2+ pulses, warm, well-perfused, no edema. NEUROLOGICAL: Normal speech, gait not observed. PSYCH: Normal mood, normal affect. SKIN: Warm, dry, normal turgor, no rashes or lesions noted. LABS Laboratory Results - last 24 hr 01/28/20 01/28/20 01/28/20 15:52 15:52 19:35 WBC 8.5 RBC 4.91 Hgb 15.8 Hct 45.4 MCV 92.5 MCH 32.3 MCHC 34.9 RDW 13.0 Plt Count 186 MPV 8.4 Absolute Neuts (auto) 6.0 Neutrophils % 70.4 Lymphocytes % 22.3 Monocytes % 6.5 Eosinophils % 0.5 Basophils % 0.3 Nucleated RBC % 0 Sodium 139 Potassium 3.9 Chloride 104 Carbon Dioxide 26 Anion Gap 9 BUN 15.0 Creatinine 0.9 Est GFR (CKD-EPI)AfAm 126.90 Est GFR (CKD-EPI)NonAf 109.49 Random Glucose 165 H Hemoglobin A1c % Calcium 9.1 Magnesium 2.2 Total Bilirubin 0.7 AST 30 ALT 45 Alkaline Phosphatase 55 Creatine Kinase 204 Creatine Kinase Index 1.5 CK-MB (CK-2) 3.1 Troponin I < 0.02 Total Protein 8.2 Albumin 4.6 TSH 1.31 Urine Color Yellow Urine Appearance Clear Urine pH 7.0 Ur Specific [place] 1.015 Urine Protein Negative Urine Glucose (UA) Negative Urine Ketones 1+ H Urine Blood Negative Urine Nitrite Negative Urine Bilirubin Negative Urine Urobilinogen 1.0 Ur Leukocyte Esterase Negative Opiates Screen Methadone Screen Barbiturate Screen Phencyclidine Screen Ur Amphetamines Screen MDMA (Ecstasy) Screen Benzodiazepines Screen Cocaine Screen U Marijuana (THC) Screen 01/28/20 01/29/20 01/29/20 19:35 05:45 05:45 WBC RBC Hgb Hct MCV MCH MCHC RDW Plt Count MPV Absolute Neuts (auto) Neutrophils % Lymphocytes % Monocytes % Eosinophils % Basophils % Nucleated RBC % Sodium 140 Potassium 4.2 Chloride 104 Carbon Dioxide 30 Anion Gap 6 L BUN 16.3 Creatinine 0.9 Est GFR (CKD-EPI)AfAm 126.90 Est GFR (CKD-EPI)NonAf 109.49 Random Glucose 87 Hemoglobin A1c % 4.7 Calcium 8.9 Magnesium 2.1 Total Bilirubin AST ALT Alkaline Phosphatase Creatine Kinase Creatine Kinase Index CK-MB (CK-2) Troponin I Total Protein Albumin TSH Urine Color Urine Appearance Urine pH Ur Specific [place] Urine Protein Urine Glucose (UA) Urine Ketones Urine Blood Urine Nitrite Urine Bilirubin Urine Urobilinogen Ur Leukocyte Esterase Opiates Screen Negative Methadone Screen Negative Barbiturate Screen Negative Phencyclidine Screen Negative Ur Amphetamines Screen Negative MDMA (Ecstasy) Screen Negative Benzodiazepines Screen Negative Cocaine Screen Negative U Marijuana (THC) Screen Negative HOSPITAL COURSE: Date of Admission:01/29/20 ECHO (01/29/2020): EF 65-70% w/ no structural abnormalities Date of Discharge: 01/29/20 RY OF PRESENT ILLNESS: 34yo M with no PMHx presented to [facility] ED one day after his wedding due to rapid palpitations. Patient has previously experienced these symptoms before 2 months ago, however at the time he went to bed and the episode resolved. On 01/29/2020 he came to the ED at the suggestion of his because he started to develop an uneasiness and slight lightheadedness. Patient takes no medications and has never had any cardiac or pulmonary history. He admitted to drinking alcohol in celebration of his wedding, but otherwise had not consumed any illicit substances or excessive caffeneited beverages. In the ED ptn noted to have HR of 180bpm and was given Cardizem IVP x2 with good effects, however not long-lasting. He was then given Cardizem 30mg PO by ER providers with resultant HR of 100-120bpm. Patient's BP had been stable throughout. Ptn was admitted to the telemetry floors where Cardiology was consulted. CHADsVASc was 0. Eliquis was started at 5mg BID prophylactically. Cardiology saw the patient and deemed eliquis unnecessary and began Toprol Xl 25mg qdaily with suggested outpatient followup for monitoring and possible ablation. Ptn spontaneously converted from Afib to NSR and was deemed medically stable for DC with outpatient followup with Cardiology. Minutes to complete discharge: 36 Discharge Summary Problems reviewed: Yes Reason For Visit: NEW ONSET ATRIAL FIBRILLATION Condition: Improved - Instructions Diet, Activity, Other Instructions: YOUR VISIT -You came to the hospital because you were experiencing an abnormal heart rate and lightheadedness. You were admitted to the hospital for a condition called "Atrial Fibrillation" which you were given medication for. You are now stable and may return home. MEDICATIONS -Please START taking Metoprolol 25mg once per day in the morning to control your heart rate. call for refill before you run out ADDITIONAL CARE -Please make an appointment to see Dr. Shadi Lunsford (Cardiology) in 1 week to discuss your atrial fibrillation, as well as being placed on a heart monitor and possible interventions to address this problem. He can be reached at [phone]. -Please make an appointment to see Dr. Betito Espinal (Primary Care) within 2 weeks to discuss your general health needs. ADDITIONAL INFORMATION -Please call 911 or come directly to the emergency department if you experience recurrence of the symptoms that brought you to the hospital, unusual headache, vision change, shortness of breath, chest pain, numbness, tingling, loss of alertness/awareness, loss of function, unusual bleeding or any alarming symptoms. Referrals: Betito Espinal [Staff Physician] - 2 Weeks Shadi Lunsford MD [Staff Physician] - 1 Week (New onset afib) Disposition: HOME - Home Medications Comprehensive Discharge Medication List: Ambulatory Orders Metoprolol Succinate [Toprol Xl] 25 mg PO DAILY 30 Days #30 tab.er.24h MDD 25 01/29/20 This patient is new to me today: Yes Date on this admission: 01/29/20 Emergency Visit: No Critical Care patient: No - Discharge Referral Referred to [facility] No ATTENDING PHYSICIAN STATEMENT I saw and evaluated the patient. I reviewed the resident's note and discussed the case with the resident. I agree with the resident's findings and plan as documented. SUBJECTIVE: OBJECTIVE: ASSESSMENT AND PLAN:
[2020-01-29 14:52] VITALS: BP 118/74; PULSE 64; TEMP 98.2
--- NOTE | 2020-01-29 15:00 | ECHO ---
Name: KLEVERFILIKarl KRISTELGlenn Exam:Adult Echocardiogram Study Date: 01/29/2020 11:26 AM Age: 34 yrs Reason For Study: r/o vavluvar pathology Height: 69 in Weight: 220 lb BSA: 2.2 m2 MMode/2D Measurements & Calculations IVSd: 0.82 cm Ao root diam: 2.8 cm LVIDd: 5.2 cm LA dimension: 2.8 cm LVIDs: 2.7 cm LVPWd: 0.84 cm EDV(Teich): 127.3 ml LVOT diam: 2.0 cm ESV(Teich): 27.2 ml LAV (MOD-bp): 56.3 ml Doppler Measurements & Calculations MV E max tomás: 55.1 cm/sec Ao V2 max: 104.5 cm/sec MV A max tomás: 50.2 cm/sec Ao max P.4 mmHg MV E/A: 1.1 MV dec time: 0.23 sec FORD(V,D): 3.5 cm2 LV V1 max P.1 mmHg PA V2 max: 81.4 cm/sec LV V1 max: 113.2 cm/sec PA max P.7 mmHg Med Peak E' Tomás: 8.2 cm/sec PI Vmax: 70.6 cm/sec Med E/e': 6.8 Lat Peak E' Tomás: 8.6 cm/sec Lat E/e': 6.4 Procedure A complete two-dimensional transthoracic echocardiogram was performed (2D, M-mode, Doppler and color flow Doppler). Left Ventricle The left ventricle is normal in size. Left ventricular systolic function is normal. Ejection Fraction = 65- 70%. No regional wall motion abnormalities noted. Right Ventricle The right ventricle is normal size. The right ventricular systolic function is normal. Atria The left atrial size is normal. Right atrial size is normal. Mitral Valve The mitral valve is normal in structure and function. There is no mitral regurgitation noted. Tricuspid Valve The tricuspid valve is normal in structure and function. No tricuspid regurgitation. Aortic Valve The aortic valve is normal in structure and function. No aortic regurgitation is present. Pulmonic Valve The pulmonic valve is not well visualized. Great Vessels The aortic root is normal size. Pericardium/Pleura There is no pericardial effusion. Interpretation Summary The left ventricle is normal in size. Left ventricular systolic function is normal. No regional wall motion abnormalities noted. Ejection Fraction = 65-70%. No significant valvular regurgitations There is no pericardial effusion. Angel Ospina MD 01/29/2020 02:59 PM
--- NOTE | 2020-01-29 17:05 | EKG ---
Test Reason : Blood Pressure : / mmHG Vent. Rate : 145 BPM Atrial Rate : 110 BPM P-R Int : 000 ms QRS Dur : 104 ms QT Int : 312 ms P-R-T Axes : 000 077 052 degrees QTc Int : 484 ms ATRIAL FIBRILLATION WITH RAPID VENTRICULAR RESPONSE ABNORMAL ECG WHEN COMPARED WITH ECG OF 13-NOV-2016 22:01, ATRIAL FIBRILLATION HAS REPLACED SINUS RHYTHM VENT. RATE HAS INCREASED BY 60 BPM Confirmed by EVIN BRIDGES MD ([id number]) on 01/29/2020 5:05:06 PM Referred By: Confirmed By:EVIN BRIDGES MD
== END 2020-01-29 15:43 | disposition home or self-care (01) ==
LOC: JER 15:08 → JERBED 17:43 → INTOOBSV 17:43 → UNDOADMOB 17:43 → UNDOADMIN 19:43 → JERBED 19:43 → J4W 20:55 → JERBED 20:55 → J4W 01-29 11:49
PROVIDERS: ADMIT Internal Medicine; ATTEND Internal Medicine
PROC: 3E033GC Introduction of Other Therapeutic Substance into Peripheral Vein, Percutaneous Approach (ICD-10-PCS; principal; 2020-01-29)
PROC: 3E0337Z Introduction of Electrolytic and Water Balance Substance into Peripheral Vein, Percutaneous Approach (ICD-10-PCS; 2020-01-29)
DX: I48.91 Unspecified atrial fibrillation (principal); R42 Dizziness and giddiness; Z87.891 Personal history of nicotine dependence
CPT/HCPCS: 36415; 71046-TC-FY; 80048; 80053; 80307; 81003; 82550; 82553; 83036; 83735; 84443; 84484; 85025; 87086; 93005; 93010; 93306-TC; 99285-25; G0378; U0003